=== PATIENT | female | born 1975 | race Caucasian/White ===

== ENCOUNTER 2017-03-18 05:43 | Inpatient (IN) | payer BC ==
[2017-03-12 13:52] LABS: BASOPHILS # (AUTO) 0.02 K/uL (0.00-0.20); BASOPHILS % (AUTO) 0.3 % (0.0-2.0); EOSINOPHILS # (AUTO) 0.04 K/uL (0.00-0.70); EOSINOPHILS % (AUTO) 0.67 % (1.0-6.0); HEMATOCRIT 39.9 % (36-46); HEMOGLOBIN 12.9 g/dL (12.0-16.0); LYMPHOCYTES # (AUTO) 2.5 K/uL (1.0-4.8); MEAN CORPUSCULAR HEMOGLOBIN 27.6 pg (26.0-34.0); MEAN CORPUSCULAR HGB CONC 32.5 G/dL (31.0-37.0); MEAN CORPUSCULAR VOLUME 85 fL (80-100); MONOCYTES # (AUTO) 0.3 K/uL (0.1-1.0); MONOCYTES % (AUTO) 4.7 % (2.0-9.0); NEUTROPHILS # (AUTO) 3.5 K/uL (1.8-7.7); NEUTROPHILS % (AUTO) 55.2 % (40.0-70.0); PLATELET COUNT (AUTO) 236 K/uL (150-450); RED BLOOD CELL COUNT(AUTO) 4.69 MIL/uL (4.00-5.20); RED CELL DISTRIBUTION WIDTH 13.3 % (11.5-14.5)
[2017-03-12 14:08] LABS: PROTHROMBIN TIME 10.6 SEC (9.4-11.6)
[2017-03-12 15:11] LABS: ANION GAP 5 mmol/L (8-16); CALCIUM, TOTAL 8.7 mg/dL (8.8-10.5); CARBON DIOXIDE 30 mmol/L (22-29); CHLORIDE 106 mmol/L (98-107); CREATININE 0.69 mg/dL (0.60-1.30); GLOMERULAR FILTR. RATE CALC > 60 mL/min (>60); GLUCOSE,RANDOM 97 mg/dL (70-110); POTASSIUM 4.5 mmol/L (3.5-5.1); SODIUM SERUM 141 mmol/L (136-145); UREA NITROGEN, BLOOD 11 mg/dL (7-18)
[2017-03-12 15:26] LABS: ALANINE AMINOTRANSFERASE 44 U/L (12-78); ALBUMIN 3.5 g/dL (3.4-5.0); ALKALINE PHOSPHATASE 58 U/L (46-116); ASPARTATE AMINOTRANSFERASE 31 U/L (15-37); BILIRUBIN,TOTAL 0.2 mg/dL (0.1-1.0)
[~2017-03-18] VITALS: Ht 149.9 cm; Wt 80.0 kg
[~2017-03-18 05:43] MED LIST: CYCL10 PO; OXYC20 PO; OXYC20TA79 PO; RINGERS SOLUTION,LACTATED 1,000 ML IV ONE
[2017-03-18] MEDS ORDERED: GUM MASTIC/STORAX/MSAL/ALCOHOL LIQUID 0.67 ML VIAL TP ONE (06:58)
[2017-03-18] MEDS ORDERED: BUPIVACAINE HCL/PF 0.5% 30 ML VIAL ONE (06:58)
[2017-03-18] MEDS ORDERED: VANCOMYCIN HCL 1 GM/VIAL ONE (06:58)
[2017-03-18] MEDS ORDERED: MICROFIBRILLAR COLLAGEN 1 GM PACKAGE TP ONE (06:58)
[2017-03-18] MEDS ORDERED: MUPIROCIN CALCIUM 2% 22 GM OINTMENT ONE (06:58)
[2017-03-18] MEDS ORDERED: RINGERS SOLUTION,LACTATED 1,000 ML IV ONE ×4 (06:59→08:29)
[2017-03-18] MEDS ORDERED: SODIUM CL IRRIG SOLN BAG 3,000 ML IRRIG ONE (06:59)
[2017-03-18] MEDS ORDERED: VANCOMYCIN HCL 1.5 GM in DEXTROSE 5%-WATER 250 ML IV ONE (07:15)
[2017-03-18] MEDS ORDERED: BUPIVACAINE LIPOSOME/PF 1.3%-13.3MG/ML SUSPENSION 20 ML VIAL INJ ONE (07:15)
[2017-03-18] MEDS ORDERED: OXYGEN THERAPY IH SCH (08:30)
[2017-03-18] MEDS ORDERED: MEPERIDINE-PF 25 MG/ML SYRINGE IVP PRN (08:30)
[2017-03-18] MEDS: ACETAMINOPHEN 1000 MG/ISO-OSM 100 ML IV SCH ×2 (08:45→16:30)
[2017-03-18] MEDS ORDERED: ZOLPIDEM TARTRATE 10 MG TABLET PO PRN (08:45)
[2017-03-18] MEDS ORDERED: CYCLOBENZAPRINE HCL 10 MG TABLET PO SCH (09:00)
[2017-03-18] MEDS ORDERED: OxyCODONE HCL 20 MG ER TABLET PO SCH (09:00)
[2017-03-18] MEDS ORDERED: KETAMINE HCL 50 MG/ML 10 ML VIAL IVP ONE (09:43)
[2017-03-18] MEDS ORDERED: HYDROmorphone 2 MG/ML SYRINGE IVP ONE (09:43)
[2017-03-18] MEDS ORDERED: MIDAZOLAM HCL 2 MG/2 ML VIAL IVP ONE (09:43)
[2017-03-18] MEDS ORDERED: FentaNYL CITRATE-PF 100 MCG/2 ML VIAL IVP ONE (09:43)
[2017-03-18] MEDS ORDERED: LIDOCAINE HCL/PF 2% 5 ML VIAL INJ ONE (10:06)
[2017-03-18] MEDS ORDERED: NEOSTIGMINE METHYLSULFATE 1 MG/ML 10 ML VIAL IVP ONE (10:06)
[2017-03-18] MEDS ORDERED: SUCCINYLCHOLINE CHLORIDE 20 MG/ML 10 ML VIAL IVP ONE (10:06)
[2017-03-18] MEDS ORDERED: METOCLOPRAMIDE HCL 5 MG/ML 2 ML VIAL IVP ONE (10:06)
[2017-03-18] MEDS ORDERED: PROPOFOL 1% 20 ML VIAL IVP ONE (10:06)
[2017-03-18] MEDS ORDERED: GLYCOPYRROLATE 0.2 MG/ML VIAL IM ONE (10:06)
[2017-03-18] MEDS ORDERED: DEXAMETHASONE SOD PHOS 4 MG/ML VIAL IVP ONE (10:06)
[2017-03-18] MEDS ORDERED: LABETALOL HCL 5 MG/ML 20 ML VIAL IVP ONE (10:06)
[2017-03-18] MEDS ORDERED: ONDANSETRON HCL 4 MG/2 ML VIAL IVP ONE (10:06)
[2017-03-18] MEDS ORDERED: EPHEDrine SULFATE 50 MG/ML VIAL IM ONE (10:06)
[2017-03-18] MEDS ORDERED: ROCURONIUM BROMIDE 10 MG/ML 5 ML VIAL IVP ONE (10:06)
[2017-03-18] MEDS: HYDROmorphone 2 MG/ML SYRINGE IVP PRN ×7 (11:42→19:51)
[2017-03-18] MEDS ORDERED: HYDROmorphone 2 MG/ML SYRINGE ONE (11:43)
[2017-03-18] MEDS: FentaNYL CITRATE-PF 100 MCG/2 ML VIAL IVP PRN ×2 (12:05→12:10)
[2017-03-18] MEDS ORDERED: FentaNYL CITRATE-PF 100 MCG/2 ML VIAL ONE (12:06)
[2017-03-18] MEDS ORDERED: MEPERIDINE-PF 50 MG/ML SYRINGE ONE (12:17)
[2017-03-18 13:20] VITALS: BP 115/72
[2017-03-18] MEDS: OxyCODONE HCL 10 MG ER TABLET PO SCH ×2 (14:40→21:37)
[2017-03-18 16:18] VITALS: BP 122/70
[2017-03-18] MEDS ORDERED: CYCLOBENZAPRINE HCL 10 MG TABLET PO ONE (16:45)
[2017-03-18 20:07] VITALS: BP 114/67
[2017-03-18] MEDS: VANCOMYCIN HCL 1 GM/D5% WATER 200 ML IV SCH (21:37)
[2017-03-18 23:58] VITALS: BP 116/61
[2017-03-19] MEDS: CYCLOBENZAPRINE HCL 10 MG TABLET PO SCH ×3 (00:01→19:36)
[2017-03-19 04:59] VITALS: BP 151/84
[2017-03-19] MEDS: HYDROmorphone 2 MG/ML SYRINGE IVP PRN ×3 (04:59→19:39)
[2017-03-19 07:50] VITALS: BP 106/52
[2017-03-19] MEDS: ACETAMINOPHEN 1000 MG/ISO-OSM 100 ML IV SCH ×2 (08:08)
[2017-03-19] MEDS: ENOXAPARIN SODIUM 30 MG/0.3 ML PF SYRINGE SQ SCH ×2 (08:09→19:38)
[2017-03-19] MEDS: OxyCODONE HCL 10 MG ER TABLET PO SCH ×2 (09:52→19:38)
[2017-03-19] MEDS: VANCOMYCIN HCL 1 GM/D5% WATER 200 ML IV SCH (09:56)
[2017-03-19 11:33] VITALS: BP 104/58
[2017-03-19] MEDS ORDERED: SODIUM CHLORIDE 0.9% 1,000 ML IV ONE (13:50)
[2017-03-19 15:23] VITALS: BP 106/65
[2017-03-19] MEDS ORDERED: SODIUM CHLORIDE 0.9% 500 ML IV ONE (16:32)
[2017-03-19 20:49] VITALS: BP 112/64
[2017-03-19] MEDS: OxyCODONE HCL 10 MG IR TABLET PO PRN (23:28)
[2017-03-19 23:35] VITALS: BP 131/77
[2017-03-20] VITALS (8 sets, daily range): BP systolic 100–138; BP diastolic 62–77
[2017-03-20 07:59] LABS: HEMATOCRIT 35.6 % (36-46); HEMOGLOBIN 11.6 g/dL (12.0-16.0); MEAN CORPUSCULAR HEMOGLOBIN 27.7 pg (26.0-34.0); MEAN CORPUSCULAR HGB CONC 32.6 G/dL (31.0-37.0); MEAN CORPUSCULAR VOLUME 85 fL (80-100); PLATELET COUNT (AUTO) 250 K/uL (150-450); RED BLOOD CELL COUNT(AUTO) 4.18 MIL/uL (4.00-5.20); RED CELL DISTRIBUTION WIDTH 14.1 % (11.5-14.5)
[2017-03-20] MEDS: HYDROmorphone 2 MG/ML SYRINGE IVP PRN ×2 (08:07→15:43)
[2017-03-20 08:08] LABS: ANION GAP 6 mmol/L (8-16); CALCIUM, TOTAL 7.9 mg/dL (8.8-10.5); CARBON DIOXIDE 29 mmol/L (22-29); CHLORIDE 103 mmol/L (98-107); CREATININE 0.75 mg/dL (0.60-1.30); GLOMERULAR FILTR. RATE CALC > 60 mL/min (>60); GLUCOSE,RANDOM 114 mg/dL (70-110); POTASSIUM 3.8 mmol/L (3.5-5.1); SODIUM SERUM 138 mmol/L (136-145); UREA NITROGEN, BLOOD 11 mg/dL (7-18)
[2017-03-20 08:14] LABS: ALANINE AMINOTRANSFERASE 26 U/L (12-78); ALBUMIN 2.9 g/dL (3.4-5.0); ALKALINE PHOSPHATASE 56 U/L (46-116); ASPARTATE AMINOTRANSFERASE 18 U/L (15-37); BILIRUBIN,TOTAL 0.2 mg/dL (0.1-1.0); TOTAL PROTEIN, SERUM 6.3 g/dL (6.4-8.2)
[2017-03-20 08:48] LABS: BAND NEUTROPHILS % (MANUAL) 1 % (1-5); LYMPHOCYTES % (MANUAL) 27 % (22-44); MONOCYTES % (MANUAL) 4 % (2-9); SEGMENTED NEUTROPHILS % 68 % (40-70)
[2017-03-20] MEDS: ENOXAPARIN SODIUM 30 MG/0.3 ML PF SYRINGE SQ SCH ×2 (09:43→20:43)
[2017-03-20] MEDS: OxyCODONE HCL 10 MG ER TABLET PO SCH ×2 (09:44→20:44)
[2017-03-20] MEDS: CYCLOBENZAPRINE HCL 10 MG TABLET PO SCH ×2 (09:44→20:44)
[2017-03-20] MEDS: DIAZEPAM 5 MG TABLET PO PRN (10:54)
[2017-03-20] MEDS: OxyCODONE HCL 10 MG IR TABLET PO PRN (17:03)
[2017-03-21] MEDS: OxyCODONE HCL 10 MG IR TABLET PO PRN (03:22)
[2017-03-21 05:13] VITALS: BP 102/54
[2017-03-21 07:29] LABS: ANION GAP 7 mmol/L (8-16); CALCIUM, TOTAL 8.1 mg/dL (8.8-10.5); CARBON DIOXIDE 28 mmol/L (22-29); CHLORIDE 100 mmol/L (98-107); GLOMERULAR FILTR. RATE CALC > 60 mL/min (>60); GLUCOSE,RANDOM 109 mg/dL (70-110); POTASSIUM 3.8 mmol/L (3.5-5.1); SODIUM SERUM 135 mmol/L (136-145); THYROID STIMULATING HORMONE 3.48 uIU/mL (0.36-3.74); UREA NITROGEN, BLOOD 14 mg/dL (7-18)
[2017-03-21 07:53] VITALS: BP 107/63
[2017-03-21 08:28] LABS: BASOPHILS # (AUTO) 0.03 K/uL (0.00-0.20); BASOPHILS % (AUTO) 0.3 % (0.0-2.0); EOSINOPHILS # (AUTO) 0.12 K/uL (0.00-0.70); EOSINOPHILS % (AUTO) 1.05 % (1.0-6.0); HEMATOCRIT 34.8 % (36-46); HEMOGLOBIN 11.2 g/dL (12.0-16.0); LYMPHOCYTES # (AUTO) 3.7 K/uL (1.0-4.8); LYMPHOCYTES % (AUTO) 32.5 % (22.0-44.0); MEAN CORPUSCULAR HEMOGLOBIN 27.8 pg (26.0-34.0); MEAN CORPUSCULAR HGB CONC 32.2 G/dL (31.0-37.0); MEAN CORPUSCULAR VOLUME 86 fL (80-100); MONOCYTES # (AUTO) 0.6 K/uL (0.1-1.0); MONOCYTES % (AUTO) 5.3 % (2.0-9.0); NEUTROPHILS % (AUTO) 60.9 % (40.0-70.0); PLATELET COUNT (AUTO) 232 K/uL (150-450); RED BLOOD CELL COUNT(AUTO) 4.02 MIL/uL (4.00-5.20); RED CELL DISTRIBUTION WIDTH 13.7 % (11.5-14.5)
[2017-03-21] MEDS: CYCLOBENZAPRINE HCL 10 MG TABLET PO SCH (08:46)
[2017-03-21] MEDS: ENOXAPARIN SODIUM 30 MG/0.3 ML PF SYRINGE SQ SCH (08:46)
[2017-03-21] MEDS: OxyCODONE HCL 10 MG ER TABLET PO SCH (08:46)
[2017-03-21] MEDS: DIAZEPAM 5 MG TABLET PO PRN (10:27)
[2017-03-21 12:30] VITALS: BP 105/62
== END 2017-03-21 12:36 | disposition home or self-care (01) | DRG 482 ==
LOC: 4E 05:43
PROVIDERS: ADMIT Orthopaedic Surgery; ATTEND Orthopaedic Surgery
PROC: 0MBM0ZZ Excision of Left Hip Bursa and Ligament, Open Approach (ICD-10-PCS; 2017-03-18)
PROC: 0SQB0ZZ Repair Left Hip Joint, Open Approach (ICD-10-PCS; principal; 2017-03-18 07:15)
DX: S73.192A Other sprain of left hip, initial encounter (principal); E03.9 Hypothyroidism, unspecified; M25.852 Other specified joint disorders, left hip; Z79.899 Other long term (current) drug therapy; Z88.0 Allergy status to penicillin; X58.XXXA Exposure to other specified factors, initial encounter; Y93.89 Activity, other specified; Y92.89 Other specified places as the place of occurrence of the external cause; Y99.8 Other external cause status
CPT/HCPCS: 72170; 83735; 84443; 85007; 87081; 88304; 88311; 97110; 97116; 97161; 97165; 97530; 97535; C9290; J0131; J0330; J1100; J1170; J1650; J2175; J2250; J2405; J2704; J2765; J3010; J3370; J3490; J7030; J7040; J7060; J7120